=== PATIENT | male | born 1945 | race Caucasian/White ===

== ENCOUNTER 2025-06-10 08:12 | Day surgery (SDC) | payer MEDICARE, SELFPAY ==
--- OUTSIDE RECORDS SUMMARY | 2024-05-30 06:00 | XMS_ITS ---
Author Name [facility] [place] Organization [facility] [place] Address [address] [place] [address] Care Team Providers Care Investments Manager Name Role Phone MALIKA YOUNG Primary Care Provider Unavailabl e Insurance Providers: All historical and current Section Date Range: From patient's date of to the date document was created. This section includes the names of all active insurance providers for the patient. Insurance Provider Type of Coverage Plan Name Start of Policy Coverage End of Policy Coverage Group Number Member ID Insurance Provider's Telephone Number Policy Rebolledo's Name Patient's Relationship to Policy Rebolledo [place] MARY ANN MEDEX SAPPH ANGEL Jan 19, 2022 [id number] RONAL [place]ITE [place] MEDEX SAPPH ANGEL RISK Jan 19, 2022 [id number] [phone] RONAL [place] Nov 21, 2012 MEDEX BRON[place]AM [id number] [phone] CINDY, RONAL [place] Nov 21, 2011 [id number] CINDY, RONAL PATIENT MEDICARE (WNR) MEDICARE (M) PART A Feb 19, 1997 PART A [id number] CINDY RONAL PATIENT MEDICARE (WNR) MEDICARE (M) PART B Feb 19, 1997 PART B [id number] [phone] CINDY RONAL PATIENT MEDICARE (WNR) MEDICARE (M) PART A Feb 19, 1997 PART A [id number] CINDY, RONAL PATIENT MEDICARE (WNR) MEDICARE (M) PART B Feb 19, 1997 PART B [id number] [phone] CINDY RONAL PATIENT MEDICARE (WNR) MEDICARE (M) PART A Feb 19, 1997 PART A [id number] [phone] CINDY RONAL PATIENT MEDICARE (WNR) MEDICARE (M) PART B Feb 19, 1997 PART B [id number] CINDY RONAL PATIENT MEDICARE (WNR) MEDICARE (M) PART B Feb 19, 1997 PART B [id number] CINDY RONAL PATIENT MEDICARE (WNR) MEDICARE (M) PART A Feb 19, 1997 PART A [id number] CINDY RONAL PATIENT MEDICARE (WNR) MEDICARE (M) PART A Feb 19, 1997 PART A [id number] CINDY RONAL PATIENT MEDICARE (WNR) MEDICARE () PART B Feb 19, 1997 PART B [id number] CINDY RONAL PATIENT [facility] (WNR) MEDICARE ADVANTAGE [facility] (WNR) Nov 21, 1998 [facility] [id number] CINDYGURWINDERRONAL PATIENT Selected Encounter This section includes the information on record at [place] for the Encounter. Date/Time Encounter Type Encounter Description Reason Provider Source May 30, 2024 10:00 AM OFFICE O/P EST MOD 30 MIN PRIMARY CARE/MEDICINE ICD-10-CM G45.9 Transient cerebral ischemic attack, unspecified FURCOLO,MALIKA IHE Encounter Template Text not used by DC Assessments - Encounter Diagnoses This section includes the primary and secondary diagnoses documented for the Encounter. Date/Time Primary/Secondary Diagnosis Diagnosis Name Provider Source Jun 23, 2024 07:54 AM PRIMARY Transient cerebral ischemic attack, unspecified FURCOLO,MALIKA [facility] [place] [facility] Jun 23, 2024 07:54 AM SECONDARY Cervicalgia FURCOLO,MALIKA [facility] [place] [facility] Jun 23, 2024 07:54 AM SECONDARY Essential (primary) hypertension FURCOLO,MALIKA [facility] [place] [facility] Jun 23, 2024 07:54 AM SECONDARY Pure hypercholesterolem ia, unspecified FURCOLO,MALIKA [facility] [place] [facility] Jun 23, 2024 07:54 AM SECONDARY Rheumatoid arthritis, unspecified FURCOLO,MALIKA [facility] [place] [facility] Plan of Treatment: Future Appointments (+ 6 months) and Future Tests (+/- 45 days) The Plan of Treatment section includes future care activities for the patient from all [place] [facility]. This section includes future appointments and future orders which are active, pending or scheduled. Future Appointments This section includes appointments that were scheduled to occur 6 months from the date of the Encounter, up to a maximum of 20 appointments. The data comes from all [place] treatment facilities. Appointment Date/Time Appointment Type Appointme nt Facility Name Aug 21, 2024 11:00 AM AMBULATORY - NONE [facility] [place] [facility] Aug 21, 2024 11:01 AM AMBULATORY - SURG[place] [facility] Aug 21, 2024 11:30 AM AMBULATORY - REHAB MEDICIN E [facility] [place] [facility] Sep 17, 2024 11:30 AM AMBULATORY - MEDICINE [facility] [place] [facility] Oct 24, 2024 09:30 AM AMBULATORY - NONE [facility] [place] [facility] Oct 24, 2024 04:00 PM AMBULATORY - NONE [facility] [place] [facility] Vital Signs: All taken on the encounter date This section contains inpatient and outpatient Vital Signs collected on the date of the Encounter. Date/Time Temperature Pulse Blood Pressure Respiratory Rate SP02 Pain Height Weight Body Mass Index Source May 30, 2024 10:05 AM 97.7 80 118/70 16 99 6 180 27 [facility] [place] [facility] Social History: Smoking Status (Most current) and Tobacco Use (All prior to encounter date) This section includes the most current, and the historical, smoking and tobacco- related health factors from the [place] facility where the Encounter took place. Current Smoking Status This section includes the most current smoking, or tobacco-related health factor, from the [place] facility where the Encounter took place. Date/Time Current Smoking Status Comment [facility] Nov 02, 2023 11:00 AM VA-TOBACCO FORMER USER [facility] [place] [facility] Tobacco Use History This section includes a history of the smoking, or tobacco-related health factors, that were collected on or before the date of the Encounter. The data comes from the [place] facility where the Encounter took place. Date/Time Smoking Status/Tobac co Use Comment [facility] Nov 02, 2023 11:00 AM VA-TOBACCO QUIT 15 YRS OR MORE [facility] [place] [facility] Nov 02, 2022 01:00 PM VA-TOBACCO FORMER USER [facility] [place] [facility] Nov 02, 2022 01:00 PM VA-TOBACCO QUIT 15 YRS OR MORE [facility] [place] [facility] Nov 10, 2021 10:00 AM VA-TOBACCO FORMER USER [facility] [place] [facility] Nov 10, 2021 10:00 AM VA-TOBACCO QUIT 15 YRS OR MORE [facility] [place] [facility] Sep 05, 2020 03:30 PM VA-TOBACCO FORMER USER [facility] [place] [facility] Sep 05, 2020 03:30 PM VA-TOBACCO QUIT 15 YRS OR MORE [facility] [place] [facility] Oct 19, 2018 10:02 AM VA-TOBACCO FORMER USER [facility] [place] [facility] Oct 19, 2018 10:02 AM VA-TOBACCO QUIT 15 YRS OR MORE [facility] [place] [facility] April 18, 2018 10:24 AM QUIT TOBACCO USE > 7 YEARS AGO [facility] [place] [facility] Apr 21, 2017 09:57 AM QUIT TOBACCO USE > 7 YEARS AGO [facility] [place] [facility] Nov 11, 2015 02:01 PM QUIT TOBACCO USE > 7 YEARS AGO quit in 1970 cigs. [facility] Feb 26, 2005 11:25 AM HISTORY OF SMOKING [facility] Oct 03, 2003 10:41 AM HISTORY OF SMOKING [facility] Jul 27, 2002 03:38 PM HISTORY OF SMOKING quit in 1976 [facility] Jul 27, 2002 03:38 PM QUIT TOBACCO USE > 7 YEARS AGO [facility] Jul 17, 2001 11:38 AM HISTORY OF SMOKING quit in 1976 [facility] Advance Directives: All historical and current Section Date Range: From patient's date of to the date document was created. This section includes ALL of a patient's completed or amended [place] Advance and Rescinded Directives. The entries below indicate that a directive exists for the patient, but an actual copy is not included with this document. The data comes from all [place] facilities. Date Advance Directives Provider Source Mar 11, 2008 ADVANCE DIRECTIVE STEFANIE WILD [facility] Encounter Notes: All associated encounter notes This section contains the clinical notes associated to the Encounter. Date/Time Encounter Note(s) Provider Source May 30, 2024 10:13 AM PHYSICIAN NOTE: LOCAL TITLE: MD NOTE STANDARD TITLE: PHYSICIAN NOTE DATE OF NOTE: MAY 30, 2024@10:13 ENTRY DATE: MAY 30, 2024@10:13:41 AUTHOR: MALIKA YOUNG EXP COSIGNER: URGENCY: STATUS: RONAL MESA is a 78 year old WHITE MALE who is being seen today in primary care for routine follow up. CARE TEAM Community Primary Care Provider: Dr. Álvarez [place] Specialists: Community Specialists: rheumatology Dr. Murillo. 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 goes to [place] yearly in winter considering TKR soon had GB removal last june- also found mass on kidneya nd pancreas- they are following did have TIA in [place]- has implantable loop recorder- no afib has been found did have blockage in carotids- atorvastatina nd asa started, he stopped atorvastatin due to neck pain- slightly better off- but persists- does get director career RELEVANT PAST MEDICAL HISTORY Active problems - Computerized Problem List is the source for the followin. Cervicalgia 2. Hearing loss 3. Chronic low back pain 4. Cortical senile cataract 5. Shared care - data security consultant and GP Dr Murillo--Rheumatology DR Jang--pcp 6. Hypercholesterolemia 7. Impaired fasting glucose 8. History of male erectile disorder 9. Osteoporosis 10. Colonoscopy dont remember exacly but may be few polyps. 11. Gastroesophageal reflux disease (SNOMED CT 754744748) 12. Esophageal stricture s/p 5-6 yrs ago schedule for egd next month 13. Other Total Hip Replacement 14. Rheumatoid arthritis (SNOMED CT 39339997) 15. Essential hypertension (SNOMED CT 14423995) PAST SURGICAL HISTORY cochlear implant cholecystectomy appendectomy SOCIAL HISTORY Lives with: goes to [place] from - does come back for holidays ALLERGIES Patient has answered NKA MEDICATIONS VA and Non VA meds were reconciled with the patient who left with a corrected copy. Active and Recently Outpatient Medications (excluding Supplies): Active Outpatient Medications Status 1) ASPIRIN 81MG EC TAB TAKE ONE TABLET BY MOUTH ONCE ACTIVE DAILY TO PREVENT STROKE/HEART ATTACK 2) CLOTRIMAZOLE 1% TOP CREAM APPLY A SMALL AMOUNT ACTIVE TOPICALLY TWICE DAILY FOR FUNGAL INFECTION 3) FOLIC ACID 1MG TAB TAKE ONE TABLET BY MOUTH EVERY DAY ACTIVE VITAMIN/NUTRITION SUPPLEMENT 4) LOSARTAN 100MG TAB TAKE ONE TABLET BY MOUTH ONCE ACTIVE DAILY FOR BLOOD PRESSURE/HEART 5) METHOTREXATE NA 2.5MG TAB TAKE NINE TABLETS BY MOUTH ACTIVE ONCE A WEEK FOR ARTHRITIS 6) OMEPRAZOLE 20MG EC CAP TAKE ONE CAPSULE BY MOUTH ACTIVE EVERY DAY FOR STOMACH ACID Active Non-VA Medications Status 1) Non-VA ACETAMINOPHEN 325MG TAB 325MG BY MOUTH ACTIVE NEEDED 2) Non-VA CALCIUM 250MG/VITAMIN D 125 UNT TAB 1 TABLET ACTIVE BY MOUTH EVERY DAY 3) Non-VA MULTIVITAMIN/MINERALS CAP/TAB 1 TABLET BY ACTIVE MOUTH EVERY DAY 4) Non-VA OTHER CAP/TAB REMICADE 500MG EVERY 6 WEEKS ACTIVE 10 Total Medications REVIEW OF SYMPTOMS POSITIVE FOR: NEGATIVE FOR: CONSTITUTION: no weight loss/gain, fatigue, fevers, night sweats HEENT: no vision problems, hearing loss,swallowing difficulties, sinus pain CV: no chest pain, palpitations, dyspnea on exertion, orthopnea RESP: no cough, shortness of breath, wheezing GI: no abdominal pain, N/V/D, constipation, blood in stool, normal appetite : no urinary frequency, nocturia, hematuria MUSC: no joint pain, joint swelling, muscle aches NEURO: no headaches, dizziness, memory loss, tremor, weakness PSYCH: no depression, anxiety, suicidal or homicidal thoughts SKIN: no rash, new skin lesions PHYSICAL EXAM Vitals: - - - - - - - B/P: 118/70 (05/30/2024 10:05) pulse: 80 (05/30/2024 10:05) resp: 16 (05/30/2024 10:05) temp: 97.7 F [36.5 C] (05/30/2024 10:05) Ht: 68 in [172.7 cm] (04/04/2023 10:59) Wgt: 180 lb [81.65 kg] (05/30/2024 10:05) BMI: BMI: 27.4 Exam: - - - - - - - General: A&O x 3, no acute distress, normal affect and mood bilat cochlear implants Neck: normal thyroid, normal carotids- no bruits CV: RRR S1S2, no murmur Resp: LCTA bilat, no wheezing, rales or rhonchi Neuro: grossly intact, no visible tremor, normal memory and speech Extremities: normal movement of extremities, normal gait, normal strength no LE edema RECENT LABS BMP (FASTING) Collection DT Specimen Test Name Result Units Ref Range 03/08/2024 11:39 SERUM UREA NITROGEN 19 mg/dL 7 - 25 03/08/2024 11:39 SERUM GLUCOSE 88 mg/dL 65 - 100 03/08/2024 11:39 SERUM SODIUM 141 mmol/L 135 - 145 03/08/2024 11:39 SERUM POTASSIUM 3.9 mmol/L 3.5 - 5.0 03/08/2024 11:39 SERUM CHLORIDE 108 mmol/L 100 - 110 03/08/2024 11:39 SERUM CO2 24 mEq/L 20 - 30 03/08/2024 11:39 SERUM CREATININE, Serum 1.14 mg/dL 0.50 - 1.40 11/05/2021 09:10 SERUM eGFR (IDMS) >60 Ref: >=60 LIVER PANEL TREND Collection DT Spec AST ALT T BILI ALK ALLEN T. PROT ALBUMIN 03/08/2024 11:39 SERUM 28 23 0.5 88 6.2 3.4 L 10/31/2023 11:35 SERUM 17 13 0.4 85 6.7 3.5 04/28/2023 09:01 SERUM 26 22 0.7 65 6.6 3.7 10/20/2022 13:14 SERUM 20 21 0.7 70 7.4 3.9 05/05/2022 10:54 SERUM 27 21 0.7 69 7.1 3.8 LIPID PANEL TREND Collection DT Spec CHOL HDL CHO/HDL LDL-c TRIG 03/08/2024 11:39 SERUM 151 51 3.0 75 123 10/31/2023 11:35 SERUM 140 53 2.6 65 111 04/28/2023 09:01 SERUM 157 57 2.8 82 88 10/20/2022 13:14 SERUM 221 H 78 H 2.8 132 H 53 05/05/2022 10:54 SERUM 193 67 H 2.9 105 103 CBC TREND Collection DT Spec WBC RBC HGB HCT MCV MCH PLT 03/08/2024 11:39 BLOOD 5.27 4.17 L 10.5 L 33.5 L 80.3 L 25.2 L 219 10/31/2023 11:35 BLOOD 5.44 4.25 10.5 L 34.1 L 80.2 L 24.7 L 320 04/28/2023 09:01 BLOOD 5.74 4.59 12.7 L 39.6 86.3 27.7 262 10/20/2022 13:14 BLOOD 20.60 H 4.69 12.9 39.6 84.4 27.5 291 05/05/2022 10:54 BLOOD 4.75 4.81 12.7 L 40.5 84.2 26.4 289 PSA TREND Collection DT Spec PSA SR- 07/31/2010 09:09 SERUM 0.57 03/13/2010 08:48 SERUM 0.67 06/24/2009 10:51 SERUM 0.48 09/11/2008 12:03 SERUM 0.40 08/17/2004 09:04 SERUM 0.3 HEMOGLOBIN A1C TREND Collection DT Spec HGBA1c 10/31/2023 11:35 BLOOD 5.3 04/28/2023 09:01 BLOOD 5.1 05/05/2022 10:54 BLOOD 5.3 11/05/2021 09:10 BLOOD 5.3 04/12/2018 15:31 BLOOD 5.3 ASSESSMENT AND PLAN 1. mild anemia- does take naproxen daily as well as asa. on remicaide, will trend 2. TIA- reocmmend staying on asa and atorvastatin. discusse dhaving RA puts him at higher risk for inflammatory plaques 3. knee OA- plan for TKR soon 4. mass on kidney- found incidentally when in hosp for GB removal, also mass on plancreas. outside PCP is monitoring with CT surveillance 5. RA- sees outside rheumatology 6. HTN- well controlled currently- renewed meds today HEALTH MAINTENANCE Colonoscopy (due at age 45) - Abdominal Aortic Aneurysm Screening (due at age 65 if smoker/prev smoker) - Prostate screening - Tetanus: due every 10 years Pneumonia Vacccine: Flu Vaccine: due yearly Covid Vaccine: due yearly FOLLOW UP f/u in 1 year VISIT TYPE:a MODERATE complexity visit where 30 minutes was spent in direct patient care, review of records and documentation. Upcoming Appointments: 07/02/2024 10:00 [facility] DENTAL DMD 2 08/22/2024 15:30 NHM/OPTOMETRY/HUMPHREY/ 09/12/2024 10:00 CWM/NO/PACT EIGHT 04/02/2025 14:30 NHM/OPTOMETRY/MATHIEU /es/ MALIKA YOUNG D.O. PHYSICIAN Signed: 05/30/2024 10:45 MALIKA YOUNG [facility] [place] [facility] May 30, 2024 10:12 AM PREVENTIVE MEDICINE NURSING NOTE: LOCAL TITLE: CLINICAL REMINDERS/NURSING STANDARD TITLE: PREVENTIVE MEDICINE NURSING NOTE DATE OF NOTE: MAY 30, 2024@10:12 ENTRY DATE: MAY 30, 2024@10:12:41 AUTHOR: MARELY AHUJA EXP COSIGNER: URGENCY: STATUS: COMPLETED Advance Directive Screen MH AD: Patient has an Advance Directive on file at this [facility]. No updates are needed at this time. The patient received education about Advance Directives and written notification of his/her rights. Suicide Screen: C-SSRS Screening [place] Suicide Severity Rating Scale (C-SSRS) screener 1. Over the past month, have you wished you were or wished you could go to sleep and not wake up? No 2. Over the past month, have you had any actual thoughts of killing yourself? No 3. Over the past month, have you been thinking about how you might do this? Response not required due to responses to other questions. 4. Over the past month, have you had these thoughts and had some intention of acting on them? Response not required due to responses to other questions. 5. Over the past month, have you started to work out or worked out the details of how to kill yourself? Response not required due to responses to other questions. 6. If yes, at any time in the past month did you intend to carry out this plan? Response not required due to responses to other questions. 7. In your lifetime, have you ever done anything, started to do anything, or prepared to do anything to end your life (for example, collected pills, obtained a gun, gave away valuables, went to the roof but didn't jump)? No 8. If YES, was this within the past 3 months? Response not required due to responses to other questions. Depression Screening: Perform PHQ-2 A PHQ-2 screen was performed. The score was 0 which is a negative screen for depression. Over the past two weeks, how often have you been bothered by the following problems? 1. Little interest or pleasure in doing things Not at all 2. Feeling down, depressed, or hopeless Not at all Sexual Orientation: The patient thinks of their sexual orientation as: Straight or Heterosexual /es/ MARELY AHUJA LPN License Practical Nurse Signed: 05/30/2024 10:13 MARELY AHUJA [place] [facility]
[2025-06-05 09:27] VITALS: BMI 27.4
--- NOTE | 2025-06-07 10:28 | HO.ANESPROP2 ---
Documented by User: Bisi Schofield NP 06/07/25 10:32 HPI - Anesthesia Eval Consult details Narrative: 79yo M for Left Cataract Extraction IOL Insertion No previous cataract on record Carotid stenosis in PMHx - no further info or imaging on chart review in [facility] and [facility] records [facility] Past Medical History Medical History TIA (transient ischemic attack) (2022) CTS (carpal tunnel syndrome) Hx of asbestos exposure Osteoarthritis Osteoporosis Hx of deep venous thrombosis Carotid stenosis Implantable loop recorder present Pancreatic cyst Rheumatoid arthritis Severe back pain History of skin cancer GERD (gastroesophageal reflux disease) Seasonal allergies Lightheadedness Allergic rhinitis Renal mass HTN (hypertension) Bilateral cataracts Surgical History Surgical History History of bilateral carpal tunnel release History of hip surgery History of cholecystectomy History of arthroscopy of right shoulder Hx of colonoscopy History of total right knee replacement (TKR) (~2023) History of cochlear implant (~2014) History of biopsy of kidney Social History Social History Household Members: Spouse Housing: House Are you a primary rn homecare to a significant other at home: No Do you presently have visiting nurse or other home services: No Patient Tobacco Use Status: Former Tobacco user Tobacco use type: Cigarette Use of substances other than those prescribed or required for medical reasons: No Have you been hit, kicked, punched, or otherwise hurt by someone within the past year? If so, by whom?: No Are you DNR?: No Advance Directives: No Advance Directives Information Provided: Yes Advance Directives on File: No Poor oral hygiene: No Current occupational status: retired Meds Allergies Allergy/AdvReac Type Severity Reaction Status Date / Time lisinopril Allergy Cough Verified 06/05/25 09:22 Home Medications ?Medication ?Instructions ?Recorded ?Confirmed ?Last Taken ?Type acetaminophen 500 mg tablet 1,000 mg PO Q6H PRN Pain 06/05/25 06/05/25 Unknown History (Acetaminophen Extra Strength) aspirin 81 mg chewable tablet 81 mg PO Q OTHER DAY 06/05/25 06/05/25 Unknown History calcium 600 mg (as 1 tab PO DAILY 06/05/25 06/05/25 Unknown History carbonate)-vitamin D3 5 mcg (200 unit) tablet diltiazem HCl 240 mg 240 mg PO DAILY 06/05/25 06/05/25 06/10/25 History capsule,extended release 24 hr folic acid 1 mg tablet 1 mg PO DAILY 06/05/25 06/05/25 Unknown History infliximab 100 mg intravenous 400 mg IV Q6W 06/05/25 06/05/25 Unknown History solution (Remicade) losartan 100 mg tablet 100 mg PO DAILY 06/05/25 06/05/25 Unknown History methotrexate sodium 2.5 mg tablet 22.5 mg PO .QWEEK ON Tuesday06/05/25 06/05/25 Unknown History multivitamin 1 tab PO DAILY 06/05/25 06/05/25 Unknown History omeprazole 20 mg tablet,delayed 20 mg PO DAILY 06/05/25 06/05/25 06/10/25 History release Exam Height,Weight and Vital Signs: Height 5 ft 7 in Weight 79.379 kg Assessment and Plan Assessment Anesthesia Assessment: Chart Reviewed Documented by User: Wilma Fatima MD 06/10/25 10:05 [facility] Past Medical History Medical History TIA (transient ischemic attack) (2022) CTS (carpal tunnel syndrome) Hx of asbestos exposure Osteoarthritis Osteoporosis Hx of deep venous thrombosis Carotid stenosis Implantable loop recorder present Pancreatic cyst Rheumatoid arthritis Severe back pain History of skin cancer GERD (gastroesophageal reflux disease) Seasonal allergies Lightheadedness Allergic rhinitis Renal mass HTN (hypertension) Bilateral cataracts Family History Family history of problems with anesthesia: No Surgical History Surgical History History of bilateral carpal tunnel release History of hip surgery History of cholecystectomy History of arthroscopy of right shoulder Hx of colonoscopy History of total right knee replacement (TKR) (~2023) History of cochlear implant (~2014) History of biopsy of kidney History of Problems with Anesthesia: No Social History Social History Household Members: Spouse Housing: House Are you a primary rn homecare to a significant other at home: No Do you presently have visiting nurse or other home services: No Patient Tobacco Use Status: Former Tobacco user Tobacco use type: Cigarette Use of substances other than those prescribed or required for medical reasons: No Have you been hit, kicked, punched, or otherwise hurt by someone within the past year? If so, by whom?: No Are you DNR?: No Advance Directives: No Advance Directives Information Provided: Yes Advance Directives on File: No Poor oral hygiene: No Current occupational status: retired Meds Allergies Allergy/AdvReac Type Severity Reaction Status Date / Time lisinopril Allergy Cough Verified 06/05/25 09:22 Home Medications ?Medication ?Instructions ?Recorded ?Confirmed ?Last Taken ?Type acetaminophen 500 mg tablet 1,000 mg PO Q6H PRN Pain 06/05/25 06/05/25 Unknown History (Acetaminophen Extra Strength) aspirin 81 mg chewable tablet 81 mg PO Q OTHER DAY 06/05/25 06/05/25 Unknown History calcium 600 mg (as 1 tab PO DAILY 06/05/25 06/05/25 Unknown History carbonate)-vitamin D3 5 mcg (200 unit) tablet diltiazem HCl 240 mg 240 mg PO DAILY 06/05/25 06/05/25 06/10/25 History capsule,extended release 24 hr folic acid 1 mg tablet 1 mg PO DAILY 06/05/25 06/05/25 Unknown History infliximab 100 mg intravenous 400 mg IV Q6W 06/05/25 06/05/25 Unknown History solution (Remicade) losartan 100 mg tablet 100 mg PO DAILY 06/05/25 06/05/25 Unknown History methotrexate sodium 2.5 mg tablet 22.5 mg PO .QWEEK ON Tuesday06/05/25 06/05/25 Unknown History multivitamin 1 tab PO DAILY 06/05/25 06/05/25 Unknown History omeprazole 20 mg tablet,delayed 20 mg PO DAILY 06/05/25 06/05/25 06/10/25 History release Exam Airway Mallampati Class: II TM Dist: >3cm Neck ROM: Limited Heart: rrr Lungs: cta Assessment and Plan Assessment Anesthesia Assessment: Anesthesia Plan Discussed Final Anesthetic Review Family History of Problems with Anesthesia: No History of Problems with Anesthesia: No NPO: Yes ASA Class: III Final Preanesthetic Review: No Changes in Pt Med Stat, Meds/Allgs Chart Reviewed, Consent Obtained/Reviewed and Anes Risks/Benef Reviewed Patient Risk: Intermediate Procedure Risk: Low Anesthetic Plan Anesthetic Plan: MAC: Disposition: Standard PACU
[2025-06-10 09:45] VITALS: BP 148/80; PULSE 50; RESP 16; TEMP 36.2; O2SAT 96
[2025-06-10] MEDS: Tetracaine HCl/PF 0.5% Oph Sol 4 ML DROPS 1 DROP EYE-LEFT (09:47)
[2025-06-10] MEDS: Cyclopentolate 1 % Ophth Sol 2 ML DRPBTL 1 DROP EYE-LEFT ×3 (09:48→09:53)
[2025-06-10] MEDS: Ketorolac Tromethamine 0.5% Op 5 ML DROPS 1 DROP EYE-LEFT ×3 (09:49→09:55)
[2025-06-10] MEDS: Tropicamide 1 % Ophth Sol 3 ML BTL 1 DROP EYE-LEFT ×3 (09:49→09:54)
[2025-06-10] MEDS: Phenylephrine HCL 2.5% Oph SoL 2 ML BOTTLE 1 DROP EYE-LEFT ×3 (09:50→09:56)
[2025-06-10] MEDS: Lactated Ringers 500 ML 50 ML IV (09:57)
--- NOTE | 2025-06-10 10:25 | MHC.SHP ---
Pre-Procedural Eval Section A - 24 Hr Update-Section A only Date of Service: 06/10/25 The patient is an INPATIENT: No Changes since office visit: No Cold of Flu in the past 2 weeks, No New Medical Problems, No Changes in Medication and No Patient answered all questions The patient has been examined within 24 hours of the surgical procedure. The History & Physical has been completed within 30 days and I have reviewed it.: Yes Section B - Complete if H&P > 30 days Chief Complaint: Age-related nuclear cataract, left eye Allergies: Allergies Allergy/AdvReac Type Severity Reaction Status Date / Time lisinopril Allergy Cough Verified 06/05/25 09:22 Plan Diagnosis/Plan: Unchanged I have reviewed the history and physical and performed a pertinent physical examination on my patient. No changes have occurred unless specified. Time Spent With Patient Time: Total time managing care of this patient today ____ minutes.
--- NOTE | 2025-06-10 10:26 | HO.PNOPHT ---
Ophthalmology Procedure Procedure Date of Service: 06/10/25 Ophthalmology Viscoelastic: Healon Duet Dual Pack Pro Ophthalmology Lenses: IOL Acrysof MP - MA60AC (19) Procedure Notes: PREOPERATIVE DIAGNOSIS: Decreased visual acuity left eye secondary to cataract POSTOPERATIVE DIAGNOSIS: Same PROCEDURE: Left cataract extraction with intraocular lens insertion SURGEON: Jose Manuel Wiggins M.D. ANESTHESIA: Topical/MAC ESTIMATED BLOOD LOSS: None COMPLICATIONS: None After obtaining informed consent, the patient was brought to the operation room suite and placed in the supine position. After adequate sedation per anesthesia, topical drops of Tetracaine were given to the left eye. The eye was then prepped and draped in the usual sterile fashion. The operating room microscope was then positioned over the operative eye and a lid speculum placed. A paracentesis was created. Viscoelastic was then instilled into the anterior chamber. A three plane incision was then created temporally, utilizing a 2.85 mm keratome. Capsulotomy forceps were then utilized to create a circular tear capsulotomy. Hydrodissection and hydrodelineation were carried out until adequate mobilization of the nucleus occurred. Phacoemulsification was then utilized to remove the dense central nucleus followed by removal of the cortical material utilizing the automated aspiration irrigation unit. Viscoat elastic was instilled into the posterior capsular bag followed by placement of a posterior chamber intraocular lens without difficulty. The residual Viscoat elastic was then removed utilizing the automated IA machine. The wound was check and found to be watertight. The patient tolerated the procedure well and the lid speculum was removed. Intracameral injection of Vigamox 0.1 mL followed by a subtenon injection of Kenalog-40 0.2 mL were administered. The patient will be seen in the a.m.
[2025-06-10 10:53] VITALS: BP 133/64; PULSE 58; RESP 16; TEMP 36.2; O2SAT 98
== END 2025-06-10 11:04 | disposition home or self-care (01) ==
PROVIDERS: PCP Internal Medicine; Visit Provider Ophthalmology
PROC: (CPT 66985; principal; 2025-06-10 11:00)
DX: H25.12 Age-related nuclear cataract, left eye (principal); H54.7 Unspecified visual loss; H53.2 Diplopia; I10 Essential (primary) hypertension; M06.9 Rheumatoid arthritis, unspecified; H91.90 Unspecified hearing loss, unspecified ear; Z86.718 Personal history of other venous thrombosis and embolism; J30.1 Allergic rhinitis due to pollen; L98.9 Disorder of the skin and subcutaneous tissue, unspecified; Z79.1 Long term (current) use of non-steroidal anti-inflammatories (NSAID); Z79.620 Long term (current) use of immunosuppressive biologic; Z79.631 Long term (current) use of antimetabolite agent; Z79.899 Other long term (current) drug therapy; Z88.8 Allergy status to other drugs, medicaments and biological substances; Z87.891 Personal history of nicotine dependence
CPT/HCPCS: 66984; J2250; J3301; V2630

== ENCOUNTER 2025-06-24 08:20 | Day surgery (SDC) | payer MEDICARE, SELFPAY ==
[2025-06-05 09:34] VITALS: BMI 27.4
--- NOTE | 2025-06-21 11:12 | HO.ANESPROP2 ---
Documented by User: Bisi Schofield NP 06/21/25 11:15 HPI - Anesthesia Eval Consult details Narrative: 79yo M for Right Cataract Extraction IOL Insertion Left eye 06/10/25: [facility] 1 Carotid stenosis in PMHx - no further info or imaging on chart review in [facility] and [facility] records [facility] Past Medical History Medical History TIA (transient ischemic attack) (2022) CTS (carpal tunnel syndrome) Hx of asbestos exposure Osteoarthritis Osteoporosis Hx of deep venous thrombosis Carotid stenosis Implantable loop recorder present Pancreatic cyst Rheumatoid arthritis Severe back pain History of skin cancer GERD (gastroesophageal reflux disease) Seasonal allergies Lightheadedness Allergic rhinitis Renal mass HTN (hypertension) Bilateral cataracts Family History Family history of problems with anesthesia: No Surgical History Surgical History Hx of left cataract extraction (06/10/25) History of bilateral carpal tunnel release History of hip surgery History of cholecystectomy History of arthroscopy of right shoulder Hx of colonoscopy History of total right knee replacement (TKR) (~2023) History of cochlear implant (~2014) History of biopsy of kidney History of Problems with Anesthesia: No Social History Social History Household Members: Spouse Housing: House Are you a primary youth care professional to a significant other at home: No Do you presently have visiting nurse or other home services: No Patient Tobacco Use Status: Former Tobacco user Tobacco use type: Cigarette Use of substances other than those prescribed or required for medical reasons: No Have you been hit, kicked, punched, or otherwise hurt by someone within the past year? If so, by whom?: No Are you DNR?: No Advance Directives: No Advance Directives Information Provided: Yes Advance Directives on File: No Healthcare Proxy: No Poor oral hygiene: No Current occupational status: retired Meds Allergies Allergy/AdvReac Type Severity Reaction Status Date / Time lisinopril Allergy Cough Verified 06/05/25 09:22 Home Medications ?Medication ?Instructions ?Recorded ?Confirmed ?Last Taken ?Type acetaminophen 500 mg tablet 1,000 mg PO Q6H PRN Pain 06/05/25 06/05/25 Unknown History (Acetaminophen Extra Strength) aspirin 81 mg chewable tablet 81 mg PO Q OTHER DAY 06/05/25 06/05/25 Unknown History calcium 600 mg (as 1 tab PO DAILY 06/05/25 06/05/25 Unknown History carbonate)-vitamin D3 5 mcg (200 unit) tablet diltiazem HCl 240 mg 240 mg PO DAILY 06/05/25 06/05/25 06/10/25 History capsule,extended release 24 hr folic acid 1 mg tablet 1 mg PO DAILY 06/05/25 06/05/25 Unknown History infliximab 100 mg intravenous 400 mg IV Q6W 06/05/25 06/05/25 Unknown History solution (Remicade) losartan 100 mg tablet 100 mg PO DAILY 06/05/25 06/05/25 Unknown History methotrexate sodium 2.5 mg tablet 22.5 mg PO .QWEEK ON Tuesday06/05/25 06/05/25 Unknown History multivitamin 1 tab PO DAILY 06/05/25 06/05/25 Unknown History omeprazole 20 mg tablet,delayed 20 mg PO DAILY 06/05/25 06/05/25 06/10/25 History release Exam Height,Weight and Vital Signs: Height 5 ft 7 in Weight 79.379 kg Assessment and Plan Assessment Anesthesia Assessment: Chart Reviewed Final Anesthetic Review Family History of Problems with Anesthesia: No History of Problems with Anesthesia: No Documented by User: Wilma Fatima MD 06/24/25 09:38 [facility] Past Medical History Medical History TIA (transient ischemic attack) (2022) CTS (carpal tunnel syndrome) Hx of asbestos exposure Osteoarthritis Osteoporosis Hx of deep venous thrombosis Carotid stenosis Implantable loop recorder present Pancreatic cyst Rheumatoid arthritis Severe back pain History of skin cancer GERD (gastroesophageal reflux disease) Seasonal allergies Lightheadedness Allergic rhinitis Renal mass HTN (hypertension) Bilateral cataracts Surgical History Surgical History Hx of left cataract extraction (06/10/25) History of bilateral carpal tunnel release History of hip surgery History of cholecystectomy History of arthroscopy of right shoulder Hx of colonoscopy History of total right knee replacement (TKR) (~2023) History of cochlear implant (~2014) History of biopsy of kidney Social History Social History Household Members: Spouse Housing: House Are you a primary youth care professional to a significant other at home: No Do you presently have visiting nurse or other home services: No Patient Tobacco Use Status: Former Tobacco user Tobacco use type: Cigarette Use of substances other than those prescribed or required for medical reasons: No Have you been hit, kicked, punched, or otherwise hurt by someone within the past year? If so, by whom?: No Are you DNR?: No Advance Directives: No Advance Directives Information Provided: Yes Advance Directives on File: No Healthcare Proxy: No Poor oral hygiene: No Current occupational status: retired Meds Allergies Allergy/AdvReac Type Severity Reaction Status Date / Time lisinopril Allergy Cough Verified 06/05/25 09:22 Home Medications ?Medication ?Instructions ?Recorded ?Confirmed ?Last Taken ?Type acetaminophen 500 mg tablet 1,000 mg PO Q6H PRN Pain 06/05/25 06/05/25 Unknown History (Acetaminophen Extra Strength) aspirin 81 mg chewable tablet 81 mg PO Q OTHER DAY 06/05/25 06/05/25 Unknown History calcium 600 mg (as 1 tab PO DAILY 06/05/25 06/05/25 Unknown History carbonate)-vitamin D3 5 mcg (200 unit) tablet diltiazem HCl 240 mg 240 mg PO DAILY 06/05/25 06/05/25 06/10/25 History capsule,extended release 24 hr folic acid 1 mg tablet 1 mg PO DAILY 06/05/25 06/05/25 Unknown History infliximab 100 mg intravenous 400 mg IV Q6W 06/05/25 06/05/25 Unknown History solution (Remicade) losartan 100 mg tablet 100 mg PO DAILY 06/05/25 06/05/25 Unknown History methotrexate sodium 2.5 mg tablet 22.5 mg PO .QWEEK ON Tuesday06/05/25 06/05/25 Unknown History multivitamin 1 tab PO DAILY 06/05/25 06/05/25 Unknown History omeprazole 20 mg tablet,delayed 20 mg PO DAILY 06/05/25 06/05/25 06/10/25 History release Exam Airway Mallampati Class: II TM Dist: >3cm Neck ROM: Limited Heart: rrr Lungs: cta Assessment and Plan Assessment Anesthesia Assessment: Anesthesia Plan Discussed Final Anesthetic Review NPO: Yes ASA Class: III Final Preanesthetic Review: No Changes in Pt Med Stat, Meds/Allgs Chart Reviewed and Consent Obtained/Reviewed Patient Risk: Intermediate Procedure Risk: Low Anesthetic Plan Anesthetic Plan: MAC: and Agree w/ Assess. and Plan Disposition: Standard PACU
[2025-06-24 09:25] VITALS: BP 154/98; PULSE 65; RESP 15; TEMP 36.3; O2SAT 97
[2025-06-24] MEDS: Tetracaine HCl/PF 0.5% Oph Sol 4 ML DROPS 1 DROP EYE-RIGHT (09:32)
[2025-06-24] MEDS: Cyclopentolate 1 % Ophth Sol 2 ML DRPBTL 1 DROP EYE-RIGHT ×3 (09:33→09:44)
[2025-06-24] MEDS: Tropicamide 1 % Ophth Sol 3 ML BTL 1 DROP EYE-RIGHT ×3 (09:34→09:45)
[2025-06-24] MEDS: Ketorolac Tromethamine 0.5% Op 5 ML DROPS 1 DROP EYE-RIGHT ×3 (09:35→09:46)
[2025-06-24] MEDS: Phenylephrine HCL 2.5% Oph SoL 2 ML BOTTLE 1 DROP EYE-RIGHT ×3 (09:37→09:47)
[2025-06-24] MEDS: Lactated Ringers 500 ML 50 ML IV (09:42)
--- NOTE | 2025-06-24 10:36 | MHC.SHP ---
Pre-Procedural Eval Section A - 24 Hr Update-Section A only Date of Service: 06/24/25 The patient is an INPATIENT: No Changes since office visit: No Cold of Flu in the past 2 weeks, No New Medical Problems, No Changes in Medication and No Patient answered all questions The patient has been examined within 24 hours of the surgical procedure. The History & Physical has been completed within 30 days and I have reviewed it.: Yes Section B - Complete if H&P > 30 days Chief Complaint: Age-related nuclear cataract, right eye Allergies: Allergies Allergy/AdvReac Type Severity Reaction Status Date / Time lisinopril Allergy Cough Verified 06/05/25 09:22 Plan Diagnosis/Plan: Unchanged I have reviewed the history and physical and performed a pertinent physical examination on my patient. No changes have occurred unless specified. Time Spent With Patient Time: Total time managing care of this patient today ____ minutes.
--- NOTE | 2025-06-24 10:37 | P.PCNO_ITS ---
Ophthalmology Procedure Procedure Date of Service: 06/24/25 Ophthalmology Viscoelastic: Healon Duet Dual Pack Pro Ophthalmology Lenses: IOL Acrysof MP - MA60AC (19) Procedure Notes: PREOPERATIVE DIAGNOSIS: Decreased visual acuity right eye secondary to cataract POSTOPERATIVE DIAGNOSIS: Same PROCEDURE: Right cataract extraction with intraocular lens insertion SURGEON: Jose Manuel Wiggins M.D. ANESTHESIA: Topical/MAC ESTIMATED BLOOD LOSS: None COMPLICATIONS: None After obtaining informed consent, the patient was brought to the operating room suite and placed in the supine position. After adequate sedation per anesthesia, topical drops of Tetracaine were given to the right eye. The eye was then prepped and draped in the usual sterile fashion. The operating room microscope was then positioned over the operative eye and a lid speculum placed. A paracentesis was created. Viscoelastic was then instilled into the anterior chamber. A three plane incision was then created temporally, utilizing a 2.85 mm keratome. Capsulotomy forceps were then utilized to create a circular tear capsulotomy. Hydrodissection and hydrodelineation were carried out until adequate mobilization of the nucleus occurred. Phacoemulsification was then utilized to remove the dense central nucl eus followed by removal of the cortical material utilizing the automated aspiration irrigation unit. Viscoelastic was instilled into the posterior capsular bag followed by placement of a posterior chamber intraocular lens without difficulty. The residual Viscoelastic was then removed utilizing the automated IA machine. The wound was checked and found to be watertight. The patient tolerated the procedure well and the lid speculum was removed. Intracameral injection of Vigamox 0.1 mL followed by a subtenon injection of Kenalog-40 0.2 mL were administered. The patient will be seen in the a.m.
[2025-06-24 10:59] VITALS: BP 108/75; PULSE 76; RESP 16; TEMP 36.3; O2SAT 100
== END 2025-06-24 11:05 | disposition home or self-care (01) ==
PROVIDERS: PCP Internal Medicine; Visit Provider Ophthalmology
PROC: (CPT 66985; principal; 2025-06-24 11:00)
DX: H25.11 Age-related nuclear cataract, right eye (principal); H54.7 Unspecified visual loss; H53.2 Diplopia; I10 Essential (primary) hypertension; M06.9 Rheumatoid arthritis, unspecified; Z86.718 Personal history of other venous thrombosis and embolism; J30.1 Allergic rhinitis due to pollen; K21.9 Gastro-esophageal reflux disease without esophagitis; Z79.1 Long term (current) use of non-steroidal anti-inflammatories (NSAID); Z79.899 Other long term (current) drug therapy; Z79.620 Long term (current) use of immunosuppressive biologic; Z88.8 Allergy status to other drugs, medicaments and biological substances; Z87.891 Personal history of nicotine dependence
CPT/HCPCS: 66984; J2250; J3301; V2630